=== PATIENT | male | born 1965 | race African-American/Black ===

== ENCOUNTER 2017-03-14 09:19 | Emergency (ER) | payer OTHER ==
[~2017-03-14] VITALS: Ht 170.2 cm; Wt 66.0 kg
[2017-03-14 09:30] VITALS: TEMP 36.6; O2SAT 96; Ht 170.2 cm; Wt 66.0 kg
[2017-03-14] MEDS ORDERED: METHYLPREDNISOLONE 125 MG VIAL IM STA (09:46)
[2017-03-14] MEDS ORDERED: ALBUT/IPRATROP 3MG/0.5MG NEB 3 ML VIAL INH STA (09:46)
--- NOTE | 2017-03-14 09:49 | EMERGENCY ROOM VISIT NOTE ---
History Report prepared by Torieibe: Regina Tierney Under the Supervision of: Dr. Raysa Meraz M.D. First contact with patient: 09:37 Chief Complaint: SHORTNESS OF BREATH Stated Complaint: RESPIRATORY Nursing Triage Summary: Patient arrived via EMS. Pt getting Duoneb. EMS reports patient was on the way to the [employer] game wiht others who were smoking in the car and flared up his COPD. Patient states he feels much better now "my lungs are loosening up". Pt denies chest pain. States he had a flare up about a week ago and had xrays done then. History of Present Illness The patient is a 52 year old male who presents to the Emergency Room by EMS with complaints of an episode of flared up COPD occurring just prior to arrival. The patient states he was going to the [employer] game with people smoking in the car when he started to have shortness of breath and a cough. The patient smokes 10 cigarettes a day and takes albuterol daily but he has recently lost his inhaler. He denies any vomiting. Source of History: patient Onset: just prior to arrival Timing: other (episode) Associated Symptoms: + cough, + SOB, No vomiting Review of Systems See HPI for pertinent positives & negatives. A total of 10 systems reviewed and were otherwise negative. Past Medical & Surgical Medical Problems: (1) COPD (chronic obstructive pulmonary disease) Family History no pertinent family history stated. Social History Smoking Status: Current Some Day Smoker Marital Status: single Occupation Status: unemployed Current/Historical Medications Scheduled Albuterol Hfa (Ventolin Hfa), 2-4 PUFFS INH Q6H Prednisone (Prednisone), 40 MG PO DAILY Tiotropium [place] (Spiriva Handihaler), 1 CAP INH DAILY Miscellaneous Medications Fluticasone Prop/Salmeterol (Advair Diskus 250-50 Mcg/Dose) Allergies Coded Allergies: No Known Allergies (Unverified , 03/14/17) Physical Exam Vital Signs Date Time Temp Pulse Resp B/P (MAP) Pulse Ox O2 Delivery O2 Flow Rate FiO2 03/14/17 10:25 85 20 112/87 94 Room Air 03/14/17 09:39 90 03/14/17 09:30 96 Room Air 03/14/17 09:30 96 Room Air 03/14/17 09:30 36.6 84 16 126/97 96 Room Air Physical Exam Vital signs reviewed. General: Well-appearing male, in no significant distress. HEENT: No scleral icterus, PERRLA, neck supple. Atraumatic. Cardiovascular: Regular rate and rhythm, no extra sounds. Pulmonary: Wheezing throughout bilateral lung stafford. Increased work of breathing. Abdomen: Soft, nontender, nondistended, positive bowel sounds. Musculoskeletal: Atraumatic, no peripheral edema. Neurologic: Patient awake alert and oriented x 3 Skin: Warm, dry, no rash Medical Decision & Procedures ER Provider Diagnostic Interpretation: Radiology results as stated below per my review and radiologist interpretation: CHEST ONE VIEW PORTABLE FINDINGS: The bones soft tissues and hemidiaphragms are normal. The cardiomediastinal silhouette is normal. The lungs are clear. The pulmonary vasculature is normal. IMPRESSION: Negative chest. The above report was generated using voice recognition software. It may contain grammatical, syntax or spelling errors. Electronically signed by: Robert Irby M.D. Medications Administered Medications (Trade) Dose Ordered Sig/Marianna Route Start Time Stop Time Status Last Admin Dose Admin Methylprednisolone Sodium Succinate (Solu-Medrol IV) 125 mg NOW STAT IM 03/14/17 09:46 03/14/17 09:47 DC 03/14/17 10:23 125 MG Albuterol/ Ipratropium (Duoneb) 3 ml NOW STAT INH 03/14/17 09:46 03/14/17 09:47 DC 03/14/17 09:53 3 ML Albuterol (Ventolin Hfa Inhaler) 2 puffs NOW ONCE INH 03/14/17 10:15 03/14/17 10:16 DC 03/14/17 10:24 2 PUFFS ED Course 0941: Past medical records reviewed. The patient was evaluated in room B2. A complete history and physical examination was performed. 0946: Duoneb 3 ml INH, Solu-Medrol IV 125 mg IM. 1015: Albuterol 2 puffs INH. 1019: Upon reevaluation, the patient appeared to have improvement of his symptoms. I discussed findings with his. He verbalized agreement of the treatment plan. The patient was discharged home. Medical Decision Differential diagnosis: Etiologies such as infections, reactive airway disease, pneumonia, pneumothorax , COPD, CHF, cardiac ischemia, pulmonary embolism, musculoskeletal, gastrointestinal, as well as others were entertained. This patient was evaluated and appeared to be in no significant distress. IV access was obtained and laboratory work was drawn. Patient was given 125 mg of IM Solu-Medrol and a DuoNeb treatment. Patient's breathing improved, chest x- ray is clear. Patient complained of leg pain after the injection. I assured him I do not believe his knee pain is related to the IM injection of Solu- Medrol. Nursing evaluated the leg and there is no evidence of acute inflammatory reaction. Patient was ambulatory. He declined any Tylenol. He stated he was walking to the stadium. He was given an albuterol inhaler and a prescription for prednisone. He was advised to follow-up with his physician upon return home. He will return to the ER for worsening of symptoms or any medical concerns. Medication Reconcilliation Current Medication List: was personally reviewed by me Blood Pressure Screening Patient's blood pressure: Normal blood pressure Impression Primary Impression: COPD (chronic obstructive pulmonary disease) Scribe Attestation The scribe's documentation has been prepared under my direction and personally reviewed by me in its entirety. I confirm that the note above accurately reflects all work, treatment, procedures, and medical decision making performed by me. Departure Information Dispostion Home / Self-Care Prescriptions Prednisone (Prednisone) 20 Mg Tab 40 MG PO DAILY, #8 TAB Prov: Raysa Meraz M.D. 03/14/17 Referrals No Doctor, Assigned (PCP) Forms HOME CARE DOCUMENTATION FORM, IMPORTANT VISIT INFORMATION Patient Instructions COPD - [facility], [facility] Additional Instructions Diagnosis: COPD exacerbation Prednisone 40 mg daily for more days 4 days. Albuterol 2 puffs every 4 hours as needed for wheezing, shortness of breath Stop smoking. Follow up with your doctor upon return home. Return to the ED for worsening of symptoms or any medical concerns.
--- NOTE | 2017-03-14 09:58 | DIAGNOSTIC IMAGING REPORT ---
CHEST ONE VIEW PORTABLE CLINICAL HISTORY: COPD exacerbation dyspnea COMPARISON STUDY: No previous studies for comparison. FINDINGS: The bones soft tissues and hemidiaphragms are normal. The cardiomediastinal silhouette is normal. The lungs are clear. The pulmonary vasculature is normal. IMPRESSION: Negative chest. The above report was generated using voice recognition software. It may contain grammatical, syntax or spelling errors. Electronically signed by: Robert Irby M.D. 03/14/2017 9:56 AM Dictated Date/Time: 03/14/2017 9:56 AM
[2017-03-14] MEDS ORDERED: VNTHFA/IN INH (09:59)
[2017-03-14] MEDS ORDERED: ADVIN25050 (09:59)
[2017-03-14] MEDS ORDERED: SPRIN/30 INH (09:59)
[2017-03-14] MEDS ORDERED: PRED20TA PO (10:13)
[2017-03-14] MEDS ORDERED: ALBUTEROL HFA 8 GM INHALER INH ONE (10:15)
[2017-03-14 10:25] VITALS: BP 112/87; PULSE 85; O2SAT 94
== END 2017-03-14 10:40 | disposition home or self-care (01) ==
LOC: C.EDB 09:23
DX: J44.9 Chronic obstructive pulmonary disease, unspecified (principal); F17.210 Nicotine dependence, cigarettes, uncomplicated